=== PATIENT | female | born 1950 | race American Indian/Alaskan Native ===

== ENCOUNTER 2017-03-04 09:10 | Day surgery (SDC) | payer MEDICARE, OTHER ==
[2017-03-03 12:47] VITALS: BMI 36.9
[2017-03-04] MEDS ORDERED: cefOXitin IV 1 gm in Dextrose 0 GM/0 ML BAG IVPB ONE (10:59)
[2017-03-04] MEDS ORDERED: Propofol 10 mg/ml Inj (20 ML) ONE (11:06)
[2017-03-04] MEDS ORDERED: Midazolam 2 MG/2 ML VIAL ONE (11:06)
[2017-03-04] MEDS ORDERED: Lactated Ringer's 1,000 ML IV ONE (11:15)
[2017-03-04] MEDS ORDERED: cefOXitin IV 2 gm in Dextrose 2 GM/50 ML BAG IVPB ONE (11:29)
[2017-03-04] MEDS ORDERED: HYDROmorphone 0.5 mg/0.5 ml ISec IVP PRN (11:44)
--- NOTE | 2017-03-04 11:45 | PCM.SURG1 ---
Surgeon's Initial Post Op Note - Surgeon's Notes Surgeon: dr victoria [employer] Consultant: none Type of Anesthesia: General LMA Anesthesia Administered By: dr sepulveda Pre-Operative Diagnosis: 67 with endometrial thickening r/o polyp Operative Findings: see the op reoprt Post-Operative Diagnosis: endometral polyp Operation Performed: myasure/d &c, hyesterscopy Specimen/Specimens Removed: ecc. emc. polyp Estimated Blood Loss: EBL {In ML}: 20 Blood Products Given: N/A Drains Used: No Drains Post-Op Condition: Good Date of Surgery/Procedure: 03/04/17 Time of Surgery/Procedure: 11:45
--- NOTE | 2017-03-04 12:16 | OP ---
PROCEDURE DATE: 03/04/2017 PREOPERATIVE DIAGNOSIS: A 67-year-old 2, para 2 with endometrial thickening, rule out polyp. POSTOPERATIVE DIAGNOSIS: Endometrial polyp. SURGEON: Robert Villeda MD [employer] SURGEON: None. ANESTHESIA: General anesthesia. ANESTHESIOLOGIST: Dr. Riki Baker. ESTIMATED BLOOD LOSS: 20 mL. COMPLICATIONS: None. PROCEDURE PERFORMED: MyoSure, D and C, hysteroscopy. PROCEDURE: After informed consent was obtained, the patient was brought to the operating room, place d on the table where general anesthesia was given. When anesthesia was found to be adequate, she was prepped and draped in normal sterile fashion. Examination found uterus to be 7 week size, no vulvar or adnexal masses. After that, a sterile catheter was entered, 20 mL of urine came out, then the an terior lip of the cervix was grasped with the tenaculum. Gentle dilatation of the cervix was done. After that, hysteroscope was introduced, was found to be a polyp coming from the anterior wall of the uterus, about 3-4 cm. After that, a decision was to use MyoSure, then the MyoSure was used and the polyp was removed. Pictures were taken both before and after. After that, the ECC was done and the endometrial curettage was done from all the mendez of the uterus, sent to pathology. Anterior lip of the tenaculum was removed the polyp. The deficit was 190 mL. The patient tolerated the proce dure well. Lap, sponge and instruments correct x 2. Robert Villeda MD cc: [id number] TT: 03/04/2017 12:15:53 nga
[2017-03-04 14:11] VITALS: RESP 16; TEMP 97; O2SAT 94
[2017-03-04 14:16] VITALS: BP 131/68; PULSE 51
== END 2017-03-04 14:00 | disposition home or self-care (01) ==
LOC: C.SDS 09:10
PROVIDERS: ATTEND Obstetrics & Gynecology
DX: N84.0 Polyp of corpus uteri (principal); N95.0 Postmenopausal bleeding
CPT/HCPCS: 58558; 88305; J0694; J2001; J2250; J2704; J3010; J7120